=== PATIENT | male | born 1965 | race Two or more races ===

== ENCOUNTER 2017-06-16 16:33 | Day surgery (SDC) | payer BC, OTHER ==
[~2017-06-16 16:33] MED LIST: PHENYLEPHRINE HCL INJ/PF 10 MG/1 ML SDV ONE; SUCCINYLCHOLINE CHLORIDE INJ 200 MG/10 ML VIAL ONE
--- NOTE | 2017-06-16 16:49 | ER Document Report ---
ED Medical Screen (RME) - General Chief Complaint: Abdominal Pain Stated Complaint: ABDOMINAL PAIN Time Seen by Provider: 06/16/17 16:47 Notes: Patient says that he has 3 days of periumbilical and epigastric pain. It is gradually getting worse. No vomiting. No problems with urine or stool. States she has been able to eat. No previous abdominal surgeries. TRAVEL OUTSIDE OF THE [place] IN LAST 30 DAYS: No - Related Data Allergies/Adverse Reactions: No Known Allergies Allergy (Unverified 06/26/15 11:53) Past Medical History Renal/ Medical History: Denies: Hx Peritoneal Dialysis Physical Exam - Vital signs Vitals: Temp Pulse Resp BP Pulse Ox 97.5 F 65 16 135/89 H 99 06/16/17 16:38 06/16/17 16:38 06/16/17 16:38 06/16/17 16:38 06/16/17 16:38 Course - Vital Signs Vital signs: Temp Pulse Resp BP Pulse Ox 97.5 F 65 16 135/89 H 99 06/16/17 16:38 06/16/17 16:38 06/16/17 16:38 06/16/17 16:38 06/16/17 16:38
[2017-06-16 17:10] LABS: ABSOLUTE BASOPHILS # (AUTO) 0.1 10^3/uL (0.0-0.2); ABSOLUTE EOSINOPHILS # (AUTO) 0.3 10^3/uL (0.0-0.6); ABSOLUTE LYMPHOCYTES (AUTO) 2.5 10^3/uL (0.5-4.7); ABSOLUTE MONOCYTES (AUTO) 0.9 10^3/uL (0.1-1.4); ABSOLUTE NEUT (AUTO) 9.8 10^3/uL (1.7-8.2); BASOPHILS % (AUTO) 0.5 % (0-2); EOSINOPHILS % (AUTO) 2.3 % (0-6); HEMATOCRIT 47.2 % (37.9-51.0); HEMOGLOBIN 16.3 g/dL (13.5-17.0); HGB HCT DIFFERENCE 1.7; LYMPHOCYTES % (AUTO) 18.1 % (13-45); MEAN CORPUSCULAR HEMOGLOBIN 30.8 pg (27.0-33.4); MEAN CORPUSCULAR HGB CONC 34.6 g/dL (32.0-36.0); MEAN CORPUSCULAR VOLUME 89 fl (80-97); MONOCYTES % (AUTO) 6.8 % (3-13); RED CELL DISTRIBUTION WIDTH 12.5 % (11.5-14.0); SEGMENTED NEUTROPHILS % (AUTO) 72.3 % (42-78); WHITE BLOOD COUNT 13.6 10^3/uL (4.0-10.5)
[2017-06-16 17:14] LABS: APPEARANCE,URINE CLEAR; BILIRUBIN,URINE NEGATIVE (NEGATIVE); GLUCOSE, URINE NEGATIVE (NEGATIVE); KETONES,URINE NEGATIVE (NEGATIVE); LEUKOCYTE ESTERASE,URINE NEGATIVE (NEGATIVE); NITRITE,URINE NEGATIVE (NEGATIVE); PROTEIN,URINE NEGATIVE (NEGATIVE); URINE SPECIFIC GRAVITY 1.018; UROBILINOGEN,URINE NEGATIVE mg/dL (<2.0)
[2017-06-16 17:35] LABS: ALANINE AMINOTRANSFERASE 33 U/L (21-72); ALBUMIN 4.3 g/dL (3.5-5.0); ALKALINE PHOSPHATASE 68 U/L (38-126); ANION GAP 12 (5-19); ASPARTATE AMINO TRANSFERASE 22 U/L (17-59); BILIRUBIN,DIRECT 0.2 mg/dL (0.0-0.4); BILIRUBIN,TOTAL 0.8 mg/dL (0.2-1.3); BLOOD UREA NITROGEN 14 mg/dL (7-20); CALCIUM 9.3 mg/dL (8.4-10.2); CARBON DIOXIDE 27 mmol/L (22-30); CHLORIDE 103 mmol/L (98-107); CREATININE RESULT 0.74 mg/dL (0.52-1.25); GLUCOSE 91 mg/dL (75-110); LIPASE 128.1 U/L (23-300); SODIUM 141.8 mmol/L (137-145); TOTAL PROTEIN 7.8 g/dL (6.3-8.2)
--- NOTE | 2017-06-16 19:29 | ER Document Report ---
ED GI/ - General Chief Complaint: Abdominal Pain Stated Complaint: ABDOMINAL PAIN Time Seen by Provider: 06/16/17 16:47 Notes: Patient is a 51-year-old male presents emergency department complaining of 3 days of diffuse abdominal pain. Patient has been translating at the bedside. She states that he has been having abdominal pain for couple of years once or twice a month that is cramping in nature last 1-2 days and usually resolves on its own. She states that this episode has been longer and more severe in quality. States he is having cramping abdominal pain with associated nausea. That is not resolved on its own. Otherwise denies any other medical problems. Denies any fever, chills, diarrhea, hydration, vomiting. Has been tolerating p.o. without any difficulty. TRAVEL OUTSIDE OF THE [place] IN LAST 30 DAYS: No - Related Data Allergies/Adverse Reactions: No Known Allergies Allergy (Verified 06/17/17 03:20) Past Medical History - Social History Smoking Status: Current Every Day Smoker Chew tobacco use (# tins/day): No Frequency of alcohol use: None Drug Abuse: None Family History: Reviewed & Not Pertinent Renal/ Medical History: Denies: Hx Peritoneal Dialysis - Immunizations Hx Diphtheria, Pertussis, Tetanus Vaccination: Yes Review of Systems - Review of Systems Constitutional: No symptoms reported Gastrointestinal: See HPI -: Yes All other systems reviewed and negative Physical Exam - Vital signs Vitals: Temp Pulse Resp BP Pulse Ox 97.5 F 65 16 135/89 H 99 06/16/17 16:38 06/16/17 16:38 06/16/17 16:38 06/16/17 16:38 06/16/17 16:38 - Notes Notes: PHYSICAL EXAM GENERAL: Alert, interacts well. LUNGS: Clear to auscultation bilaterally, no wheezes, rales, or rhonchi. No respiratory distress. HEART: Regular rate and rhythm. No murmurs, gallops, or rubs. ABDOMEN: Soft, nondistended, moderately tender most severely in the right lower quadrant. Positive guarding and rebound or rigidity.. Bowel sounds present in all 4 quadrants. EXTREMITIES: Moves all 4 extremities spontaneously. No edema, radial and dorsalis pedis pulses 2/4 bilaterally. No cyanosis. NEUROLOGICAL: Alert and oriented x4. Normal speech. PSYCH: Normal affect, normal mood. SKIN: Warm, dry, normal turgor. No rashes or lesions noted. Course - Re-evaluation Re-evalutation: 06/17/172129 Patient is a 51-year-old male who is hemodynamic stable, no acute distress afebrile. Presentation along with findings on CT is concerning for acute appendicitis. Surgery is evaluate the patient at the bedside will go to the OR from the emergency department and be admitted to the surgical patient. Patient has been kept n.p.o. and IV antibiotics were initiated. Pain well controlled in the department. - Vital Signs Vital signs: Temp Pulse Resp BP Pulse Ox 98.3 F 69 16 104/61 100 06/17/17 06:40 06/17/17 06:40 06/17/17 06:40 06/17/17 06:40 06/17/17 06:40 - Laboratory Result Diagrams: 06/16/17 17:00 06/16/17 17:00 Laboratory results interpreted by me: 06/16/17 17:00 WBC 13.6 H Absolute Neutrophils 9.8 H Discharge - Discharge Clinical Impression: Appendicitis Qualifiers: Appendicitis type: acute appendicitis Acute appendicitis type: unspecified acute appendicitis type Qualified Code(s): K35.80 - Unspecified acute appendicitis Disposition: ADMITTED INPATIENT Admitting Provider: Surgicalist Unit Admitted: Surgical Floor
--- NOTE | 2017-06-16 20:19 | RADIOLOGY REPORT (SQ) ---
EXAM DESCRIPTION: CT ABDOMEN IV CONTRAST ONLY COMPLETED DATE/TIME: 06/16/2017 7:40 pm REASON FOR STUDY: abd pain COMPARISON: None. TECHNIQUE: CT scan of the abdomen performed with intravenous and without oral contrast using helical scanning technique with dynamic intravenous contrast injection. Images reviewed with lung, soft tiss ue, and bone windows. Reconstructed coronal and sagittal MPR images reviewed. Delayed images for eval uation of the urinary system also acquired and evaluated. All images stored on PACS. All CT scanners at this facility use dose modulation, iterative reconstruc tion, and/or weight based dosing when appropriate to reduce radiation dose to as low as reasonably ac hievable (ALARA). [facility]: Dose Right [facility]: CareDose [facility]: Dose Right [facility]: Teradose 4D [facility]: Stepcase CONTRAST TYPE AND DOSE: contrast/concentration: Isovue 370.00 mg/ml; Total Contrast Delivered: 76.0 ml; Total Saline Delivered: 67.0 ml RENAL FUNCTION: Creatinine 0.74 RADIATION DOSE: Up-to-date CT equipment and radiation dose reduction techniques were employed. CTDIv ol: 4.1 - 4.9 mGy. DLP: 316 mGy-cm. . LIMITATIONS: None. FINDINGS: LOWER CHEST: No significant findings. No nodules or infiltrates. LIVER: Normal size. No masses. No dilated ducts. SPLEEN: Normal size. No focal lesions. PANCREAS: No masses. No significant calcifications. No adjacent inflammation or peripancreatic fluid collections. Pancreatic duct not dilated. GALLBLADDER: No identified stones by CT criteria. No inflammatory changes to suggest cholecystitis. ADRENAL GLANDS: No significant masses or asymmetry. RIGHT KIDNEY AND URETER: No solid masses. No significant calcifications. No hydronephrosis or hyd roureter. LEFT KIDNEY AND URETER: No solid masses. No significant calcifications. No hydronephrosis or hydr oureter. AORTA AND VESSELS: No aneurysm. No dissection. Renal arteries, SMA, celiac without stenosis. RETROPERITONEUM: No retroperitoneal adenopathy, hemorrhage or masses. BOWEL AND PERITONEAL CAVITY: On the most inferior sections in the right lower quadrant there appears to be some edematous or inflammatory changes in the mesenteric fat. These changes are incompletely v isualized. No free fluid or peritoneal masses. APPENDIX: Not identified ABDOMINAL WALL: No masses. No hernias. BONES: No significant or acute findings. OTHER: No other significant finding. IMPRESSION: The appendix is not identified. On the most inferior sections in the right lower quadra nt there appears to be some edematous or inflammatory changes in the mesenteric fat. Clinical correl ation is recommended. Other findings as noted above TECHNICAL DOCUMENTATION: JOB ID: [id number] Quality ID # [id number]: Final reports with documentation of one or more dose reduction techniques (e.g., Au tomated exposure control, adjustment of the mA and/or kV according to patient size, use of iterative reconstruction technique) 2010 [employer]- All Rights Reserved
[2017-06-16] MEDS ORDERED: MORPHINE SULFATE 10 MG/ML INJ IV ONE (20:26)
--- NOTE | 2017-06-16 21:22 | RADIOLOGY REPORT (SQ) ---
EXAM DESCRIPTION: CT PELVIS WITHOUT COMPLETED DATE/TIME: 06/16/2017 9:10 pm REASON FOR STUDY: RLQ pain, r/o appendicitis, diverticulitis COMPARISON: None. TECHNIQUE: CT scan of the pelvis performed with intravenous or oral contrast. Images reviewed with soft tissue and bone windows. Reconstructed coronal and sagittal MPR images reviewed. All images st ored on PACS. All CT scanners at this facility use dose modulation, iterative reconstruction, and/or weight based d osing when appropriate to reduce radiation dose to as low as reasonably achievable (ALARA). [facility]: Dose Right [facility]: CareDose [facility]: Dose Right [facility]: Teradose 4D [facility]: Smart [employer] RADIATION DOSE: Up-to-date CT equipment and radiation dose reduction techniques were employed. CTDIv ol: 4.7 mGy. DLP: 172 mGy-cm. mGy. LIMITATIONS: None. FINDINGS: PELVIC BONES: No acute fracture. No worrisome bone lesions. VISUALIZED SPINE: No acute findings. HIP(S): No significant findings. PELVIC SOFT TISSUES: The appendix is not identified as a discrete structure. There are edematous or inflammatory changes in the right lower quadrant. A small calcific density is identified suspicious for and appendicolith. Possibility of appendicitis should be considered. EXTRAPELVIC SOFT TISSUES: No significant findings. OTHER: No other significant finding. IMPRESSION: Findings suspicious for appendicitis in the right lower quadrant as noted above. Other findings as noted above TECHNICAL DOCUMENTATION: JOB ID: [id number] Quality ID # [id number]: Final reports with documentation of one or more dose reduction techniques (e.g., Au tomated exposure control, adjustment of the mA and/or kV according to patient size, use of iterative reconstruction technique) 2010 [employer]- All Rights Reserved
[2017-06-16] MEDS ORDERED: PIPERACILLIN/TAZOBACTAM 4.5 GM VIAL IV ONE (21:51)
[2017-06-16] MEDS ORDERED: ONDANSETRON HCL INJ/PF 4 MG/2 ML SDV IV ONE (21:51)
[2017-06-16] MEDS ORDERED: BUPIVACAINE HCL 0.25 % INJ/PF (2.5 MG/1 ML) 30 ML VIAL ONE (23:10)
[2017-06-16] MEDS ORDERED: FENTANYL CITRATE INJ/PF 250 MCG/5 ML AMPULE ONE (23:28)
--- NOTE | 2017-06-16 23:28 | HISTORY AND PHYSICAL E ---
History and Physical NAME: JOSE CARMEN : 1965 AGE: 51Y ADMITTED: 06/16/2017 ROOM: ED01 CHIEF COMPLAINT: Abdominal pains. HISTORY OF PRESENT ILLNESS: This is a 51-year-old male complaining of generalized abdominal pains that started about 2 days ago and today it became worse and persistent and more tender in the right lower quadrant when examined by the ER physician. He had a CAT scan of the abdomen which showed acute appendicitis. His white count is slightly elevated. REVIEW OF SYSTEMS: As in HPI. Denies any chest pain, shortness of breath, diarrhea, or constipation. No fever or chills. The rest of the systems are unremarkable. ALLERGIES: None known. PAST HISTORY: Unremarkable. SOCIAL HISTORY: He smokes about 2 cigarettes a day, drinks 1-2 beers a week, denies any recreational drug use. He lives with his family. FAMILY HISTORY: Noncontributory. Both parents are alive and well. PHYSICAL EXAMINATION: GENERAL: A well-developed, well-nourished 51-year-old male, alert and oriented, complaining of abdominal pains. HEENT: Neck is supple, no thyromegaly. LUNGS: Clear. HEART: Regular sinus rhythm. ABDOMEN: Soft with tenderness in the right upper quadrant with mild rebound. EXTREMITIES: No edema. Range of motion is normal. IMPRESSION: Acute appendicitis. PLAN: 1. Keep n.p.o. 2. Hydrate. 3. Start IV antibiotics. 4. Possible laparoscopic appendectomy tonight. DICTATING PHYSICIAN: JOSH VASQUEZ M.D. [id number] PHY#: [id number] ID: [id number] JOB#: [id number] ACCT: [id number] cc:JOSH VASQUEZ M.D. >
[2017-06-16] MEDS ORDERED: ONDANSETRON HCL INJ/PF 4 MG/2 ML SDV ONE (23:29)
[2017-06-16] MEDS ORDERED: MIDAZOLAM 2 MG/2 ML INJ ONE (23:29)
[2017-06-16] MEDS ORDERED: PROPOFOL INJ 200 MG/20 ML VIAL IV ONE (23:29)
[2017-06-16] MEDS ORDERED: CIPROFLOXACIN 400 MG/D5W RTU 400 MG/200 ML RTUPB IV ONE (23:56)
[2017-06-17] MEDS ORDERED: MORPHINE SULFATE 10 MG/ML INJ IV PRN (00:04)
[2017-06-17] MEDS ORDERED: PROMETHAZINE HCL INJ 25 MG/1 ML VIAL IV PRN ×2 (00:04)
[2017-06-17] MEDS ORDERED: MEPERIDINE HCL/PF INJ 25 MG/1 ML DISP.SYRIN IV PRN (00:04)
[2017-06-17] MEDS ORDERED: OXYCODONE-ACETAMINOPHEN 5-325 MG TABLET PO PRN ×3 (00:04→01:45)
[2017-06-17] MEDS ORDERED: FENTANYL CITRATE INJ/PF 100 MCG/2 ML AMPUL IV PRN ×3 (00:04)
[2017-06-17] MEDS ORDERED: DIPHENHYDRAMINE HCL 50 MG/ML VIAL IV PRN (00:04)
[2017-06-17] MEDS ORDERED: BUPIVACAINE HCL 0.25 % INJ/PF (2.5 MG/1 ML) 30 ML VIAL INJ ONE ×2 (00:22)
[2017-06-17] MEDS ORDERED: METRONIDAZOLE 500 MG/NS RTU 100 ML IV ONE (01:20)
[2017-06-17] MEDS ORDERED: ONDANSETRON HCL INJ/PF 4 MG/2 ML SDV IV PRN (01:42)
[2017-06-17] MEDS ORDERED: FENTANYL CITRATE INJ/PF 100 MCG/2 ML AMPUL ONE (01:45)
--- NOTE | 2017-06-17 02:13 | OPERATIVE REPORT E ---
Operative Report NAME: JOSE CARMEN : 1965 AGE: 51Y DATE OF SURGERY: 06/17/2017 ROOM: ED01 PREOPERATIVE DIAGNOSIS: Acute appendicitis. POSTOPERATIVE DIAGNOSIS: Acute appendicitis. PROCEDURE PERFORMED: Laparoscopic appendectomy. SURGEON: JOSH VASQUEZ M.D. ANESTHESIA: General. INDICATION FOR PROCEDURE: This is a 51-year-old male with complaint of abdominal pain for the past 2 days[address] He had a CT scan of the abdomen which showed acute appendicitis. He was tender in the right lower quadrant with rebound. DESCRIPTION OF PROCEDURE: After adequate general anesthesia, patient was placed in the supine position and the abdomen prepped and draped in the usual sterile fashion. Appropriate timeout was then performed. Next, an infraumbilical incision was made, and the fascia identified and divided with #15 blade. I was unable to put my finger through the fascia, and the posterior fascia needed to be pulled up with the Kaleb clamp on each side and divided between the Kaleb clamps. Next, finger was then able to be passed through into the abdominal cavity. Next, a Martinez trocar was then passed through the fascia into the abdominal cavity, and CO2 insufflated up to a pressure of 15 mmHg. Two other trocars were placed under direct vision; a 5 gm in the suprapubic area and a 12 mm in the left lower quadrant. The appendix was then identified and noted to be inflamed. It was plastered to the right lateral wall. The appendix was bluntly dissected and part of the cecum was also adhered to the wall. It was then divided close to the peritoneal adhesion with Harmonic thee. The appendix was then grasped with Artemio clamps and elevated, and the base dissected, and the mesoappendix then cauterized and divided with Harmonic thee. The base of the appendix was better seen, and this time, an Endo MARLENI was then passed through the left lower quadrant port, and fired at the base of the appendix. The appendiceal specimen was then placed in Endo bag and pulled out through the umbilical port. The stub of the appendix was then gently irrigated and no evidence of bleeding noted. The wall of the ileum close to the appendix was divided with harmonic thee. It appears to be close to the wall and this segment was reinforced with hemoclips to make sure there is no perforation. Next, abdominal cavity was then inspected, and no other obvious abnormality noted. The gallbladder was noted to be smooth and quite thin walled. The omentum was pulled down over the area of the appendiceal stump. Next, the trocars were then removed and no obvious bleeding noted prior to removal under direct vision. Next, the CO2 was then allowed to come out of the trocar sites. The infraumbilical fascial defect was then closed with a [id number] suture using 1 Vicryl. All the skin incisions were then closed with running subcuticular 4-0 Vicryl undyed. Marcaine was then injected at the fascial level of infraumbilical and left lower quadrant incision sites. Dermabond dressing was then used over all the incision sites. Needle, instrument, and sponge counts were all correct. Estimated blood loss was minimal, about 5 mL. The patient was brought to the recovery room in satisfactory condition. DICTATING PHYSICIAN: JOSH VASQUEZ M.D. [id number] PHY#: [id number] ID: [id number] JOB#: [id number] ACCT: [id number] cc:JOSH VASQUEZ M.D. >
[2017-06-17] MEDS: HYDROMORPHONE HCL INJ/PF 2 MG/ML AMPULE INJ PRN ×2 (02:59→13:06)
[2017-06-17] MEDS: NORMAL SALINE 1000 ML 1,000 ML IV PRN ×2 (04:47→16:16)
[2017-06-17] MEDS: CIPROFLOXACIN 400 MG/D5W RTU 400 MG/200 ML RTUPB IV SCH ×2 (05:30→17:31)
[2017-06-17] MEDS: METRONIDAZOLE 500 MG/NS RTU 100 ML IV SCH ×3 (06:38→21:42)
[2017-06-17 14:18] LABS: ABSOLUTE LYMPHOCYTES (AUTO) 1.2 10^3/uL (0.5-4.7); ABSOLUTE MONOCYTES (AUTO) 1.1 10^3/uL (0.1-1.4); ABSOLUTE NEUT (AUTO) 11.8 10^3/uL (1.7-8.2); BASOPHILS % (AUTO) 0.2 % (0-2); HEMATOCRIT 39.7 % (37.9-51.0); HGB HCT DIFFERENCE 2.3; LYMPHOCYTES % (AUTO) 8.5 % (13-45); MEAN CORPUSCULAR HEMOGLOBIN 31.2 pg (27.0-33.4); MEAN CORPUSCULAR HGB CONC 35.3 g/dL (32.0-36.0); MEAN CORPUSCULAR VOLUME 89 fl (80-97); MONOCYTES % (AUTO) 7.5 % (3-13); RED BLOOD COUNT 4.49 10^6/uL (4.35-5.55); RED CELL DISTRIBUTION WIDTH 12.4 % (11.5-14.0); SEGMENTED NEUTROPHILS % (AUTO) 83.8 % (42-78); WHITE BLOOD COUNT 14.1 10^3/uL (4.0-10.5)
[2017-06-18] MEDS: NORMAL SALINE 1000 ML 1,000 ML IV PRN (00:50)
[2017-06-18 05:42] LABS: ABSOLUTE EOSINOPHILS # (AUTO) 0.2 10^3/uL (0.0-0.6); ABSOLUTE LYMPHOCYTES (AUTO) 1.8 10^3/uL (0.5-4.7); ABSOLUTE MONOCYTES (AUTO) 0.9 10^3/uL (0.1-1.4); ABSOLUTE NEUT (AUTO) 9.1 10^3/uL (1.7-8.2); BASOPHILS % (AUTO) 0.4 % (0-2); EOSINOPHILS % (AUTO) 1.3 % (0-6); HEMATOCRIT 37.2 % (37.9-51.0); HEMOGLOBIN 13.2 g/dL (13.5-17.0); HGB HCT DIFFERENCE 2.4; LYMPHOCYTES % (AUTO) 14.7 % (13-45); MEAN CORPUSCULAR HEMOGLOBIN 31.3 pg (27.0-33.4); MEAN CORPUSCULAR HGB CONC 35.4 g/dL (32.0-36.0); MEAN CORPUSCULAR VOLUME 88 fl (80-97); MONOCYTES % (AUTO) 7.7 % (3-13); RED BLOOD COUNT 4.21 10^6/uL (4.35-5.55); RED CELL DISTRIBUTION WIDTH 12.8 % (11.5-14.0); SEGMENTED NEUTROPHILS % (AUTO) 75.9 % (42-78)
[2017-06-18] MEDS: METRONIDAZOLE 500 MG/NS RTU 100 ML IV SCH (05:57)
[2017-06-18 06:05] LABS: ANION GAP 6 (5-19); BLOOD UREA NITROGEN 9 mg/dL (7-20); CALCIUM 8.2 mg/dL (8.4-10.2); CARBON DIOXIDE 27 mmol/L (22-30); CHLORIDE 108 mmol/L (98-107); CREATININE RESULT 0.79 mg/dL (0.52-1.25); GLUCOSE 93 mg/dL (75-110); SODIUM 141.4 mmol/L (137-145)
[2017-06-18] MEDS: CIPROFLOXACIN 400 MG/D5W RTU 400 MG/200 ML RTUPB IV SCH (07:24)
[2017-06-18 08:18] VITALS: BP 131/73
--- NOTE | 2017-06-18 09:18 | DISCHARGE SUMMARY E ---
Discharge Summary NAME: JOSE CARMEN : 1965 AGE: 51Y ADMITTED: 06/16/2017 DISCHARGED: 06/18/2017 FINAL DIAGNOSIS: Acute appendicitis. PROCEDURE: Laparoscopic appendectomy 06/16/2017. HOSPITAL COURSE: As 51-year-old male complained of abdominal pains for about 2 days prior to admission. CAT scan in the ER revealed acute appendicitis with an elevated white count. He underwent laparoscopic appendectomy on the day of admission and gradually improved. His white count is 12,000 this morning from 14,000 yesterday. He is tolerating soft diet and has been passing flatus. The abdomen is soft and the incisions are clean and dry. PLAN: He will be discharged today. Go back to work in 2 weeks but light duty for 2 weeks and then gradually increase to regular activity. Also, continue him on Cipro 500 mg p.o. b.i.d. for 1 week and Flagyl 500 mg p.o. times 7 days. Also, prescription for Percocet was given. Patient advised not to do any heavy lifting for the next 2 weeks, no more than 10 pounds. He will be followed up in the clinic in about a week. DICTATING PHYSICIAN: JOSH VAQSUEZ M.D. [id number] PHY#: [id number] ID: [id number] JOB#: [id number] ACCT: [id number] cc:[facility], JOSH HUTCHINSON M.D, M.D., FRANK M.D. >
== END 2017-06-18 09:00 | disposition home or self-care (01) ==
LOC: ER 16:33 → OROUT 22:11 → UNDOADMIN 22:11 → ER 22:11 → EH 22:11 → 5 06-17 02:40 → EH 06-17 02:40 → UNDODISIN 06-18 09:00 → OROUT 06-18 09:00
PROVIDERS: ATTEND Surgery
PROC: 0DTJ4ZZ Resection of Appendix, Percutaneous Endoscopic Approach (ICD-10-PCS; principal; 2017-06-16 23:45)
DX: K35.80 Unspecified acute appendicitis (principal); F17.210 Nicotine dependence, cigarettes, uncomplicated
CPT/HCPCS: 44970; 99285; 96374; 96375; 36415 ×2; 83690; 85025 ×2; 80048; 80053; 81001; 88304 ×2; 72192; 74160; J2250; J3010 ×2; J2270; J1170; J2370; J0330; J2405 ×2; J7030 ×2; J2704; J0744 ×3; J2543; 840